=== PATIENT | female | born 1990 | race Caucasian/White ===

== ENCOUNTER 2016-06-12 06:19 | Day surgery (SDC) | payer OTHER ==
[2016-06-07 15:55] VITALS: BMI 25.7
[2016-06-12] MEDS ORDERED: PROPOFOL 20 ML ONE (07:42)
[2016-06-12] MEDS ORDERED: ROCURONIUM BROMIDE 50 MG/5 ML VIAL ONE (07:42)
--- NOTE | 2016-06-12 07:42 | HP ---
Admitting History and Physical - Admission Chief Complaint: Chronic sinusitis, deviated septum, nasal congestion, and headaches History Source: Patient, Medical Record Limitations to Obtaining History: No Limitations - Past Medical History LOT ATTENDANT: No: Alzheimer's, CVA, Dementia, Migraine, Multiple Sclerosis, Peripheral Neuropathy, Parkinson's, Seizure, Syncope, TIA, Vertigo Cardiovascular: No: AFIB, Aneurysm, Aortic Insufficiency, Aortic Stenosis, CAD, CHF, Deep Vein Thrombosis, HTN, Hyperlipdemia, MA, Mitral Insufficiency, Mitral Stenosis, Murmur, Pulmonary Hypertension, Other Pulmonary: No: Asthma, Bronchitis, Cancer, COPD, O2 Dependent, Pneumonia, Previously Intubated, Pulmonary Embolus, Pulmonary Fibrosis, Sleep Apnea, Other Gastrointestinal: No: Ascites, Cancer, Constipation, Crohn's Disease, Diverticulitis, Diverticulosis, Esophageal Varices, Gastritis, GERD, GI Bleed, Hemorrhoids, Hiatal Hernia, Inflamatory Bowel Disease, Irritable Bowel Disease, Pancreatitis, Peptic Ulcer Disease, Ulcerative Colitis, Other Hepatobiliary: No: Cirrhosis, Cholelithiasis, Cholecystitis, Choledocholithiasis , Hepatitis A, Hepatitis B, Hepatitis C, Other Renal/: No: Renal Failure, Renal Inusuff, BPH, Cancer, Hematuria, Hemodialysis , Neurogenic Bladder, Renal Calculi, UTI, Other Reproductive: No: Ectopic , Endometriosis, Fibroids, PID, Polycystic Ovary Syndrome, Postmenopausal, Other ...LMP: 06/02/16 Heme/Onc: No: Anemia, B12 Deficiency, Bleeding Disorder, Cancer, Current Chemotherapy, Current Radiation Therapy, Hemochromatosis, Hypercoaguable State, Myeloproliferative Synd, Sickle Cell Disease, Sickle Cell Trait, Thrombocytopenia, Other Infectious Disease: No: AIDS, C-Diff, Herpes Zoster, HIV, MRSA, STD's, Tuberculosis, VREF, Other Psych: Yes: Anxiety Musculoskeletal: No: Bursitis, Chronic low back pain, Hemiparesis, Hemiplegia, Osteoarthritis, Paraplegia, Other Rheumatology: No: Fibromyalgia, Gout, Lupus, Rheumatoid Arthritis, Sarcoidosis, Vasculitis, Other ENT: Yes: Sinusitis Endocrine: No: Natrona's Disease, Al's Disease, Diabetes Insipidus, Diabetes Mellitus, Hyperparathyroidism, Hyperthyroidism, Hypothyroidism, Osteopenia, SIADH, Other Dermatology: No: Basal Cell, Cellulitis, Eczema, Melanoma, Psoriasis, Squamous Cell, Other - Past Surgical History Past Surgical History: No: None, AAA Repair, AICD, Amputation, Appendectomy, Arthrosocopy, AV Fistula/Graft, Bariatric Surgery, Breast Biopsy, Bypass, CABG, Carotid Endarterectomy, Cataract Removal, Cholecystectomy, Colectomy, Colonoscopy, Colostomy, Craniotomy, , Cystectomy, Hernia Repair, Hysterectomy, Ileal Conduit, Ileosotomy, Joint Replacement, Kidney Transplant, Laminectomy, Liver Transplant, Mastectomy, Nephrectomy, Oopherectomy, Orchiectomy, Permanent Pacemaker, Prostatectomy, Splenectomy, Stent, Thoracotomy , TURP, Tonsillectomy, Tubal Ligation, Upper Endoscopy, Valve Replacement, Vasectomy, Vein Stripping/Ligation - Smoking History Smoking history: Never smoked - Alcohol/Substance Use Hx Alcohol Use: No Home Medications - Allergies Allergies/Adverse Reactions: Allergies Allergy/AdvReac Type Severity Reaction Status Date / Time No Known Allergies Allergy Verified 06/07/16 15:55 - Home Medications Home Medications: Ambulatory Orders NK [No Known Home Medication] 06/07/16 Review of Systems - Review of Systems Constitutional: denies: No Symptoms, Chills, Diaphoresis, Fever, Lethargy, Loss of Appetite, Malaise, Night Sweats, Unintentional Wgt. Loss, Weakness, Other Eyes: denies: No Symptoms, Blind Spots, Blurred Vision, Double Vision, Eye Pain , Floaters, Photophobia, Recent Change in Vision, Other HENT: reports: Nasal Congestion Neck: denies: No Symptoms, Decreased ROM, Lumps, Pain on Movement, Stiffness, Swollen Glands, Tenderness, Other Cardiovascular: denies: No Symptoms, Chest Pain, Edema, Palpitations, Shortness of Breath, Other Respiratory: denies: No Symptoms, Cough, Exercise Intolerance, Hemoptysis, Orthopnea, PND, Snoring, SOB, SOB on Exertion, Wheezing, Other Gastrointestinal: denies: No Symptoms, Abdominal Pain, Bloating, Constipation, Diarrhea, Dysphagia, Indigestion, Melena, Nausea, Rectal Bleeding, Vomiting, Vomiting Blood, Other Genitourinary: denies: No Symptoms, Burning, Discharge, Dysuria, Flank Pain, Frequency, Hematuria, Incontinence, Lesions, Menses, Pain, Testicular Mass, Testicular Pain, Testicular Swelling, Urgency, Vaginal Bleeding, Other Breasts: denies: No Symptoms Reported, See HPI, Breast Implants, Discharge from Nipple, Lumps, Pain, Skin Changes, Other Musculoskeletal: denies: No Symptoms, Back Pain, Crepitus, Decreased ROM, Extremity Pain, Joint Pain, Joint Swelling, Muscle Pain, Muscle Cramps, Muscle Weakness, Other Integumentary: denies: No Symptoms, Blister, Bruising, Change in Color, Eczema, Erythema, Incision, Lesions, Lump, Pallor, Pruritis, Rash, Wound, Other Neurological: denies: No Symptoms, Change in LOC, Change in Speech, Confusion, Dizziness, Headache, Incoordination, Numbness, Parasthesia, Pre-Existing Deficit , Seizure, Syncope, Tremors, Unsteady Gait, Weakness, Other Endocrine: denies: No Symptoms, Excessive Sweating, Flushing, Increased Hunger, Increased Thirst, Intolerance to Cold, Intolerance to Heat, Unexplained Weight Gain, Unexplained Weight Loss, Other Hematology/Lymphatic: denies: No Symptoms, Easily Bruised, Excessive Bleeding, Swollen Glands, Other Psychiatric: reports: Anxiety Physical Examination Vital Signs: Vital Signs Temperature 98.2 F 06/12/16 06:59 Pulse Rate 85 06/12/16 06:59 Respiratory Rate 16 06/12/16 06:59 Blood Pressure 109/70 06/12/16 06:59 O2 Sat by Pulse Oximetry (%) 97 06/12/16 06:59 Constitutional: Yes: Well Nourished, No Distress Eyes: Yes: WNL, Conjunctiva Clear, EOM Intact HENT: Yes: Atraumatic, Normocephalic, Nasal Congestion Neck: Yes: WNL, Supple, Trachea Midline Cardiovascular: Yes: WNL, Regular Rate and Rhythm Respiratory: Yes: WNL, Regular, CTA Bilaterally Gastrointestinal: Yes: WNL, Normal Bowel Sounds Musculoskeletal: Yes: WNL Extremities: Yes: WNL Imaging - Results Cat Scan: Report Reviewed (DNS, sinsuitis), Image Reviewed Problem List - Problems (1) Sinusitis Assessment/Plan: Nasal congestion, sinusitis, deviated septum, turbinate hypertrophy, for surgery Code(s): J32.9 - CHRONIC SINUSITIS, UNSPECIFIED Qualifiers: Sinusitis location: pansinusitis Chronicity: chronic Qualified Code(s): J32.4 - Chronic pansinusitis
[2016-06-12] MEDS ORDERED: MIDAZOLAM HCL 2 MG/2 ML SINGLE DOSE VIAL ONE (07:43)
[2016-06-12] MEDS ORDERED: DEXAMETHASONE SOD PHOSPHATE 4 MG/1 ML VIAL ONE (07:44)
[2016-06-12] MEDS ORDERED: LIDOCAINE HCL/PF 2% SDV 5ML VIAL ONE (07:44)
[2016-06-12] MEDS ORDERED: LIDOCAINE 1%/EPI 1:100000 (50 ML MULTI DOSE VIAL) ONE (07:46)
[2016-06-12] MEDS ORDERED: BACITRACIN 30 GM TUBE TOPICAL OINTMENT ONE (07:48)
[2016-06-12] MEDS ORDERED: COCAINE HCL 4% TOPICAL SOLUTION 4 ML BOTTLE TP ONE ×2 (07:50→08:07)
[2016-06-12] MEDS ORDERED: ceFAZolin SODIUM 1 GM VIAL ONE (07:55)
[2016-06-12] MEDS ORDERED: SODIUM CHLORIDE 0.9% P/F 10 ML VIAL IJ ONE (07:55)
[2016-06-12] MEDS ORDERED: ceFAZolin SODIUM 1 GM VIAL IVPB ONE (08:05)
[2016-06-12] MEDS ORDERED: LIDOCAINE 1%/EPI 1:100000 (50 ML MULTI DOSE VIAL) INF ONE (08:07)
[2016-06-12] MEDS ORDERED: NEOSTIGMINE METHYLSULFATE 0.5 MG/ML - 10 ML MDV ONE (09:10)
[2016-06-12] MEDS ORDERED: GLYCOPYRROLATE 0.2 MG/1 ML VIAL ONE (09:10)
[2016-06-12] MEDS ORDERED: PROMETHAZINE HCL 25 MG/1 ML VIAL IVPUSH PRN (09:25)
[2016-06-12] MEDS ORDERED: ONDANSETRON 4 MG/2 ML VIAL IVPUSH PRN (09:25)
[2016-06-12] MEDS ORDERED: LACTATED RINGERS SOLUTION 1,000 ML IV SCH (09:30)
[2016-06-12 10:47] VITALS: TEMP 98
[2016-06-12] MEDS ORDERED: oxyCODONE HCL 5 MG TABLET PO PRN (10:49)
[2016-06-12] MEDS ORDERED: ONDANSETRON 4 MG/2 ML VIAL ONE (12:10)
[2016-06-12] MEDS ORDERED: ONDANSETRON 4 MG/2 ML VIAL IVPB ONE (12:15)
[2016-06-12 13:45] VITALS: BP 111/66; PULSE 84
--- NOTE | 2016-06-13 12:15 | OP ---
DATE OF OPERATION: 06/12/2016 PREOPERATIVE DIAGNOSIS: Deviated septum, chronic sinusitis, turbinate hypertrophy. POSTOPERATIVE DIAGNOSIS: Deviated septum, chronic sinusitis, turbinate hypertrophy. PROCEDURE: Bilateral frontal sinus balloon dilation, right maxillary balloon dilation, left maxillary antrostomy with tissue removal, left anterior ethmoidectomy, septoplasty, turbinate outfracture and turbinate cautery, and sinus navigation. SURGEON: Isaias Rodriguez M.D. ANESTHESIA: General. ANESTHESIOLOGIST: Carrington Grubbs M.D. COMPLICATIONS: None. INDICATION FOR OPERATION: This is a patient with chronic sinus pain and pressure and nasal congestion refractory to medical treatment. Preoperatively, risks and benefits of the procedure and alternatives were discussed. All questions were answered, and patient wanted to proceed. DESCRIPTION OF PROCEDURE: Patient brought to the operating room, placed under general anesthesia. An injection of 1% lidocaine with 1:100,000 epinephrine was injected into the nasal septum, lateral nasal wall, and inferior turbinates. A 30-degree endoscope was used to examine both nostrils. Spur on the left side inferiorly was noted. superior turbinate and narrowing of the left middle meatus. The Langhar navigation tracker was placed on and the navigation machine was calibrated. Her nose was reexamined using navigation device. Procedure was started by cannulating the left frontal sinus with a frontal sinus seeker using the [employer] navigation, then placing a frontal sinus balloon up into the frontal sinus on the left side. The balloon was inflated to twice for 5 seconds a piece and then withdrawn. A cottonoid was placed into the ___frontal recess__ and then a frontal seeker was placed in the right frontal sinus and with Langhar device navigating, then a balloon was inflated twice. After the first insufflation, the balloon was advanced a little further and re-inflated, and then after the 2 dilations, the balloon was removed, and a cottonoid was placed into the frontal recess. A maxillary seeker was used to peel the uncinate on the right side forward, then the guided maxillary balloon was used to cannulate the right maxillary sinus, and then it was dilated with 2 separate balloon dilations, then a cottonoid was placed back into the middle meatus on the right side. The middle turbinate on the left side was medialized with a Shokan and the uncinate was peeled and medialized with Shokan elevator, and then removed using the microdebrider guided with the Langhar navigation equipment. The maxillary sinus was cannulated with a curved suction ____ with 30-degree endoscope and then microdebrider. The ostium was widened. The antrostomy was performed using __curved___ microdebrider and inferior turbinates were then outfractured and cauterized with bipolar turbinate cautery, and septum spur was resected using cartilage knife and a straight blade and by incising over the spur, the cartilage knife was used to excise the deviation of the cartilage to the left side, the right side of the septum was essentially straight, and at that point a nasal port packing was placed into the left ethmoid. A regular packing was placed in the left ethmoid and a firm packing was placed between the inferior turbinate and the resected spur on the left side, and the patient was then awakened in the operating room, brought to recovery room in stable condition. Ghislaine [id number] MTDD
--- NOTE | 2016-06-13 14:12 | PATH ---
Surgical Pathology Report Patient Name: COLTON SIMPSON Med. Rec. #: [id number] /Age/Gender: 1990 (Age: 25) / F Account: [id number] Location: [facility] Taken: 06/12/2016 Received: 06/12/2016 Reported: 06/13/2016 Physicians: Isaias Rodriguez M.D. Specimen(s) Received A: LEFT MAXILLARY SINUS TISSUE B: SEPTAL TISSUE (SEPTUM) Clinical History Deviated nasal septum, chronic sinusitis Final Diagnosis A. SINUS TISSUE, LEFT MAXILLARY, REMOVAL: BENIGN SINONASAL MUCOSA WITH CHRONIC INFLAMMATION AND FIBROSIS; FRAGMENTS OF SCLEROTIC APPEARING BONE. B. SEPTAL TISSUE, SEPTOPLASTY: CARTILAGE WITHOUT SIGNIFICANT PATHOLOGIC CHANGES. SMALL FRAGMENT OF SINONASAL MUCOSA WITH CHRONIC INFLAMMATION. Electronically Signed Akbar Pitts M.D. Gross Description A. Received in formalin labeled "left maxillary sinus tissue" are 3 fragments of cartilage and possible bone ranging from 0.2-0.4 cm in greatest dimension. The specimen is submitted in toto in one cassette, following decalcification. B. Received in formalin labeled "septum (septal tissue)" is a 1.1 x 0.8 x 0.3 cm aggregate of melara fragments of cartilage. The specimen is submitted in toto in one cassette, following decalcification. 06/12/201606/12/2016
== END 2016-06-12 13:30 | disposition home or self-care (01) ==
LOC: JASU-SURG 06:19
PROVIDERS: ATTEND Otolaryngology
PROC: 09QQ4ZZ Repair Right Maxillary Sinus, Percutaneous Endoscopic Approach (ICD-10-PCS; 2016-06-12)
PROC: 09QS4ZZ Repair Right Frontal Sinus, Percutaneous Endoscopic Approach (ICD-10-PCS; 2016-06-12)
PROC: 8E09XBZ Computer Assisted Procedure of Head and Neck Region (ICD-10-PCS; 2016-06-12)
PROC: 099R4ZZ Drainage of Left Maxillary Sinus, Percutaneous Endoscopic Approach (ICD-10-PCS; 2016-06-12)
PROC: 09BV4ZZ Excision of Left Ethmoid Sinus, Percutaneous Endoscopic Approach (ICD-10-PCS; 2016-06-12)
PROC: 095L4ZZ Destruction of Nasal Turbinate, Percutaneous Endoscopic Approach (ICD-10-PCS; 2016-06-12)
PROC: 09QT4ZZ Repair Left Frontal Sinus, Percutaneous Endoscopic Approach (ICD-10-PCS; principal; 2016-06-12 07:30)
DX: J34.2 Deviated nasal septum (principal); J32.8 Other chronic sinusitis
CPT/HCPCS: 84703; 88302-TC; 88304-TC; 88311-TC; 94760